=== PATIENT | male | born 1970 | race Caucasian/White ===

== ENCOUNTER 2017-08-21 14:13 | Emergency (ER) | payer OTHER ==
[~2017-08-21] VITALS: Ht 182.9 cm; Wt 80.0 kg
[~2017-08-21 14:13] MED LIST: DOXYCYCLINE HY100 M1 PO; LEXAPRO5 MG PO; METROCREAM45 GM TP; NOHOMEMEDS; OMEPRAZOLE20 M3 PO
[2017-08-21] MEDS ORDERED: REGLAN5 MG PO (17:12)
[2017-08-21] MEDS ORDERED: FIORICET 50-301 EAC1 PO (17:12)
[2017-08-21 17:30] VITALS: BP 144/75
== END 2017-08-21 17:32 | disposition home or self-care (01) ==
LOC: EME 14:13
DX: S00.03XA Contusion of scalp, initial encounter (principal); Y29.XXXA Contact with blunt object, undetermined intent, initial encounter; I10 Essential (primary) hypertension; F32.9 Major depressive disorder, single episode, unspecified; Z72.0 Tobacco use
CPT/HCPCS: 70450; 99281; 99284

== ENCOUNTER 2017-09-27 15:54 | Emergency (ER) | payer OTHER ==
[~2017-09-27] VITALS: Ht 182.9 cm; Wt 72.7 kg
[~2017-09-27 15:54] MED LIST changes: +FIORICET 50-301 EAC1 PO; +REGLAN5 MG PO
[2017-09-27] MEDS ORDERED: ULTRAM50 MG PO (19:51)
[2017-09-27 20:02] VITALS: BP 112/74
== END 2017-09-27 20:03 | disposition home or self-care (01) ==
LOC: EME 15:54
PROC: 3E0234Z Introduction of Serum, Toxoid and Vaccine into Muscle, Percutaneous Approach (ICD-10-PCS; principal; 2017-09-27)
PROC: 0HQGXZZ Repair Left Hand Skin, External Approach (ICD-10-PCS; principal; 2017-09-27)
DX: S61.411A Laceration without foreign body of right hand, initial encounter (principal); S64.92XA Injury of unspecified nerve at wrist and hand level of left arm, initial encounter; W26.0XXA Contact with knife, initial encounter; Y99.0 Civilian activity done for income or pay; Z23 Encounter for immunization
CPT/HCPCS: 99281; 99284